=== PATIENT | female | born 1955 | race Caucasian/White ===

== ENCOUNTER → 2016-07-28 | Outpatient (CLI) | payer OTHER ==
--- NOTE | 2016-07-28 11:56 | XR ---
EXAMINATION TYPE: XR chest 2V DATE OF EXAM: 07/28/2016 11:22 AM COMPARISON: None HISTORY: 61 year-old female respiratory crackles TECHNIQUE: Frontal and lateral views FINDINGS: Heart is normal size. Aorta within normal limits. Mild interstitial prominence appears chronic. No co nsolidation or pleural effusion. IMPRESSION: Chronic changes without acute cardiopulmonary process.
== END | disposition home or self-care (01) ==
LOC: RADXRMAIN 11:01
PROVIDERS: ATTEND Family Medicine
DX: J98.4 Other disorders of lung (principal); R09.89 Other specified symptoms and signs involving the circulatory and respiratory systems
CPT/HCPCS: 71020

== ENCOUNTER 2018-04-29 14:26 | Inpatient (IN) | payer OTHER ==
[2018-04-29] MEDS ORDERED: HYDROcodone/APAP 5-325MG 1 EACH TAB PO STA (15:03)
--- NOTE | 2018-04-29 15:08 | ED ---
Fall HPI - General Chief Complaint: Fall Stated Complaint: Fell Time Seen by Provider: 04/29/18 14:47 Source: patient Mode of arrival: wheelchair - History of Present Illness Initial Comments: 8-year-old female presenting after mechanical fall down 3 cement steps. Patient states she lost her footing when she fell forward striking her forehead and twisting her right knee. States she's been unable to ambulate since secondary to the knee pain. Patient is on Plavix but denies any anticoagulants. Denies any headache or blurred vision. Patient states for the past one week she has been having disequilibrium and frequent falls. States she started unknown pain medication on April 05 for her fibromyalgia. - Related Data Home Medications Medication Instructions Recorded Confirmed Amitriptyline HCl 75 mg PO HS 11/01/15 04/29/18 Atorvastatin Calcium [Lipitor] 80 mg PO HS 11/01/15 04/29/18 Lisinopril [Prinivil] 20 mg PO BID 11/01/15 04/29/18 Metoprolol Tartrate [Lopressor] 50 mg PO BID 11/01/15 04/29/18 Vilazodone HCl [Viibryd] 40 mg PO DAILY 11/01/15 04/29/18 Albuterol Inhaler [Ventolin Hfa 1 - 2 puff INHALATION RT-Q6H PRN 04/29/18 Inhaler] Baclofen [Lioresal] 5 mg PO TID 04/29/18 04/29/18 Budesonide/Formoterol Fumarate 2 puff INHALATION RT-BID 04/29/18 04/29/18 [Symbicort 160-4.5 Mcg Inhaler] Cholecalciferol [Vitamin D3] 1,000 unit PO DAILY 04/29/18 04/29/18 Fluticasone Nasal [place] [Flonase 2 spr EA NOSTRIL DAILY 04/29/18 04/29/18 Nasal [place]] Gabapentin [Neurontin] 300 mg PO TID 04/29/18 04/29/18 Ibuprofen [Motrin] 800 mg PO TID 04/29/18 04/29/18 Nitroglycerin Sl Tabs [Nitrostat] 0.4 mg SUBLINGUAL Q5M PRN 04/29/18 04/29/18 amLODIPine [Norvasc] 10 mg PO DAILY 04/29/18 04/29/18 busPIRone HCL 15 mg PO BID 04/29/18 04/29/18 clonazePAM [KlonoPIN] 0.25 mg PO DAILY PRN 04/29/18 04/29/18 lamoTRIgine [LaMICtal] 200 mg PO DAILY 04/29/18 04/29/18 oxyCODONE-APAP 7.5-325MG [Percocet 1 tab PO QID 04/29/18 04/29/18 7.5-325 mg] Previous Rx's Medication Instructions Recorded Aspirin 81 mg PO DAILY #1 chewable 11/01/15 Allergies Allergy/AdvReac Type Severity Reaction Status Date / Time No Known Allergies Allergy Verified 04/29/18 14:49 Review of Systems ROS Statement: Those systems with pertinent positive or pertinent negative responses have been documented in the HPI. Review of Systems Constitutional: Denies fever, chills Eyes: Denies change in vision, Denies pain Ears, nose, mouth, throat: Denies headaches, Denies sore throat Cardiovascular: Denies chest pain. Denies palpitations Respiratory: Denies shortness of breath, Denies cough Gastrointestinal: Denies abdominal pain. Denies nausea, vomiting, diarrhea. Genitourinary: Denies hematuria, Denies infections Musculoskeletal: Positive pain Denies swelling Integumentary: Denies rash Neurological: Denies headache, focal weakness, focal numbness Psychiatric: Denies anxiety, Denies depression Hematologic/Lymphatic: Denies easy bleeding or bruising ROS Other: All systems not noted in ROS Statement are negative. Past Medical History Past Medical History: Chest Pain / Angina, Hyperlipidemia, Hypertension, Myocardial Infarction ([place]) Last Myocardial Infarction Date:: 2012 History of Any Multi-Drug Resistant Organisms: None Reported Past Surgical History: Section, Cholecystectomy, Heart Catheterization With Stent Additional Past Surgical History / Comment(s): CARDIAC STENT Past Anesthesia/Blood Transfusion Reactions: No Reported Reaction Past Psychological History: Anxiety, Depression Smoking Status: Current every day smoker Past Alcohol Use History: None Reported Past Drug Use History: None Reported General Exam - General Exam Comments Initial Comments: General: Awake, alert, No acute Distress HENT: Normocephalic. Contusion superior to the right eyebrow superficial abrasions. No hemotympanum bilaterally. No battles sign Eyes: PERRL. EOMI. No scleral icterus. No injected conjunctiva Neck: Full ROM Chest/Lungs: Clear to auscultation bilaterally. No wheezing, rhonchi, or rales Cardiac: Regular rate, rhythm. No murmurs or rubs Abdomen/GI: Soft, nontender, nondistended. No rebound, guarding, or rigidity. Musculoskeletal: No midline cervical, thoracic, or lumbar back tenderness. No pelvic instability. Right knee tenderness to palpation inferior to the patella at the medial and lateral aspect of the joint. Limited right knee ROM secondary to pain. Superficial abrasions to the right knee. Skin: Warm, dry, intact Neurologic: A/Ox3, no weakness, no sensory deficit, no abnormal gait, no coordination deficit Limitations: no limitations Course Vital Signs 04/29/18 04/29/18 14:30 18:12 Temperature 98.1 F 98.3 F Pulse Rate 83 84 Respiratory 20 18 Rate Blood Pressure 127/81 116/71 O2 Sat by Pulse 99 96 Oximetry Medical Decision Making - Medical Decision Making 8-year-old female presenting after mechanical fall. Initial exam the patient is awake, alert, no acute distress. VSS. Patient's laboratory imaging workup negative for acute process. The patient is unable to ambulate secondary to right knee pain. I will obtain a CT however at this time the patient requires admission. She has been unstable on her feet for the past couple of days and at this time will not be able to ambulate with a knee immobilizer and crutches. I spoke with Dr. Galvez who is agreeable to admission with an orthopedic consult. 1740 Patient found to have medial and lateral tibial plateau fractures with hemarthrosis on CT. I spoke with Dr. Comer regarding patient. Patient is already in a knee immobilizer. - Lab Data Result diagrams: 04/29/18 15:15 04/29/18 15:15 Lab Results 04/29/18 04/29/18 04/29/18 Range/Units 15:15 15:15 15:15 WBC 9.6 (3.8-10.6) k/uL RBC 4.46 (3.80-5.40) m/uL Hgb 13.4 (11.4-16.0) gm/dL Hct 39.3 (34.0-46.0) % MCV 88.0 (80.0-100.0) fL MCH 30.0 (25.0-35.0) pg MCHC 34.0 (31.0-37.0) g/dL RDW 13.9 (11.5-15.5) % Plt Count 168 (150-450) k/uL Neutrophils % 71 % Lymphocytes % 20 % Monocytes % 6 % Eosinophils % 1 % Basophils % 1 % Neutrophils # 6.8 (1.3-7.7) k/uL Lymphocytes # 1.9 (1.0-4.8) k/uL Monocytes # 0.5 (0-1.0) k/uL Eosinophils # 0.1 (0-0.7) k/uL Basophils # 0.1 (0-0.2) k/uL Sodium 136 L (137-145) mmol/L Potassium 4.1 (3.5-5.1) mmol/L Chloride 104 (98-107) mmol/L Carbon Dioxide 23 (22-30) mmol/L Anion Gap 9 mmol/L BUN 5 L (7-17) mg/dL Creatinine 0.53 (0.52-1.04) mg/dL Est GFR (CKD-EPI)AfAm >90 (>60 ml/min/1.73 sqM) Est GFR (CKD-EPI)NonAf >90 (>60 ml/min/1.73 sqM) Glucose 143 H (74-99) mg/dL Calcium 9.4 (8.4-10.2) mg/dL Magnesium 1.5 L (1.6-2.3) mg/dL Troponin I <0.012 (0.000-0.034) ng/mL Urine Color Urine Appearance (Clear) Urine pH (5.0-8.0) Ur Specific [place] (1.001-1.035) Urine Protein (Negative) Urine Glucose (UA) (Negative) Urine Ketones (Negative) Urine Blood (Negative) Urine Nitrite (Negative) Urine Bilirubin (Negative) Urine Urobilinogen (<2.0) mg/dL Ur Leukocyte Esterase (Negative) 04/29/18 Range/Units 15:50 WBC (3.8-10.6) k/uL RBC (3.80-5.40) m/uL Hgb (11.4-16.0) gm/dL Hct (34.0-46.0) % MCV (80.0-100.0) fL MCH (25.0-35.0) pg MCHC (31.0-37.0) g/dL RDW (11.5-15.5) % Plt Count (150-450) k/uL Neutrophils % % Lymphocytes % % Monocytes % % Eosinophils % % Basophils % % Neutrophils # (1.3-7.7) k/uL Lymphocytes # (1.0-4.8) k/uL Monocytes # (0-1.0) k/uL Eosinophils # (0-0.7) k/uL Basophils # (0-0.2) k/uL Sodium (137-145) mmol/L Potassium (3.5-5.1) mmol/L Chloride (98-107) mmol/L Carbon Dioxide (22-30) mmol/L Anion Gap mmol/L BUN (7-17) mg/dL Creatinine (0.52-1.04) mg/dL Est GFR (CKD-EPI)AfAm (>60 ml/min/1.73 sqM) Est GFR (CKD-EPI)NonAf (>60 ml/min/1.73 sqM) Glucose (74-99) mg/dL Calcium (8.4-10.2) mg/dL Magnesium (1.6-2.3) mg/dL Troponin I (0.000-0.034) ng/mL Urine Color Light Yellow Urine Appearance Clear (Clear) Urine pH 6.5 (5.0-8.0) Ur Specific [place] 1.003 (1.001-1.035) Urine Protein Negative (Negative) Urine Glucose (UA) Negative (Negative) Urine Ketones Negative (Negative) Urine Blood Negative (Negative) Urine Nitrite Negative (Negative) Urine Bilirubin Negative (Negative) Urine Urobilinogen <2.0 (<2.0) mg/dL Ur Leukocyte Esterase Negative (Negative) Disposition Clinical Impression: Tibial plateau fracture, right Disposition: ADMITTED IP TO THIS [facility] Condition: Good Decision Date: 04/29/18 Decision Time: 16:58
[2018-04-29 15:35] LABS: Basophils # (A) 0.1 k/uL (0-0.2); Basophils % (A) 1 %; Eosinophils # (A) 0.1 k/uL (0-0.7); Eosinophils % (A) 1 %; HCT 39.3 % (34.0-46.0); HGB 13.4 gm/dL (11.4-16.0); Lymphocytes # (A) 1.9 k/uL (1.0-4.8); Lymphocytes % (A) 20 %; Mean Platelet Volume 7.4; Monocytes # (A) 0.5 k/uL (0-1.0); Monocytes % (A) 6 %; Neutrophils # (A) 6.8 k/uL (1.3-7.7); Neutrophils % (A) 71 %; Platelet Count 168 k/uL (150-450); RBC 4.46 m/uL (3.80-5.40); RDW 13.9 % (11.5-15.5); WBC 9.6 k/uL (3.8-10.6)
[2018-04-29 15:51] LABS: Anion Gap 9 mmol/L; Blood Urea Nitrogen 5 mg/dL (7-17); Calcium 9.4 mg/dL (8.4-10.2); Carbon Dioxide 23 mmol/L (22-30); Chloride 104 mmol/L (98-107); Glucose 143 mg/dL (74-99); Magnesium 1.5 mg/dL (1.6-2.3); Potassium 4.1 mmol/L (3.5-5.1); Sodium 136 mmol/L (137-145)
--- NOTE | 2018-04-29 16:03 | CT ---
EXAMINATION TYPE: CT brain lloydine wo con DATE OF EXAM: 04/29/2018 COMPARISON: NONE HISTORY: fall CT DLP: 1121.1 mGycm. Automated Exposure Control for Dose Reduction was Utilized. TECHNIQUE: CT scan of the head and cervical spine are performed without contrast. FINDINGS: There is no acute intracranial hemorrhage, mass effect, or midline shift identified. The ventricles and sulci are within normal limits in size. The globes are intact and the visualized sin uses are clear. Cervical spine is visualized in its entirety from C1 through upper thoracic levels and demonstrates s atisfactory alignment without evidence of acute fracture or dislocation. Prevertebral soft tissue ap pears within normal limits. The C1-C2 articulation is unremarkable. IMPRESSION: 1. There is no acute fracture or dislocation evident in the cervical spine. 2. No acute intracranial hemorrhage, mass effect, or midline shift is seen.
--- NOTE | 2018-04-29 16:04 | XR ---
EXAMINATION TYPE: XR chest 2V DATE OF EXAM: 04/29/2018 COMPARISON: Chest radiograph 04/13/2018 HISTORY: Fall, pain TECHNIQUE: Frontal and lateral views of the chest are obtained. FINDINGS: There is no focal air space opacity, pleural effusion, or pneumothorax seen. The cardiac silhouette size is within normal limits. The osseous structures are intact. Air density projects mendenhall perior to the left hemidiaphragm likely representing a small hiatal hernia. IMPRESSION: No acute cardiopulmonary process.
--- NOTE | 2018-04-29 16:05 | XR ---
EXAMINATION TYPE: XR Hip RT and AP Pelvis DATE OF EXAM: 04/29/2018 COMPARISON: NONE HISTORY: Fall, pain TECHNIQUE: A single AP view of the pelvis is obtained. Two views of the right hip are obtained. FINDINGS: There is no acute fracture/dislocation evident in the pelvis. The hip and sacroiliac join ts appear symmetric and unremarkable. The overlying soft tissue appears unremarkable. Two views of right hip show no acute fracture or dislocation. No focal lytic or sclerotic lesion see n in the proximal right femur. The overlying soft tissue is unremarkable. IMPRESSION: There is no acute fracture or dislocation in the pelvis or right hip.
--- NOTE | 2018-04-29 16:06 | XR ---
EXAMINATION TYPE: XR knee complete RT DATE OF EXAM: 04/29/2018 CLINICAL HISTORY: Fall, knee pain TECHNIQUE: Three views of the right knee are obtained. COMPARISON: None. FINDINGS: There is no acute fracture/dislocation evident in right knee. Tricompartmental degenerati ve type changes. The overlying soft tissue appears unremarkable. IMPRESSION: There is no acute fracture or dislocation in the right knee.
[2018-04-29 16:11] LABS: Appearance,Urine Clear (Clear); Bilirubin,Urine Negative (Negative); Blood,Urine Negative (Negative); Color,Urine Light Yellow; Glucose,Urine (UA) Negative (Negative); Ketones,Urine Negative (Negative); Leukocyte Esterase,Urine Negative (Negative); Nitrite,Urine Negative (Negative); PH, Urine 6.5 (5.0-8.0); Protein,Urine Negative (Negative); Specific Gravity,Urine 1.003 (1.001-1.035); Urobilinogen,Urine <2.0 mg/dL (<2.0)
[2018-04-29] MEDS ORDERED: MAGNESIUM OXIDE 400 MG TAB PO STA (16:16)
--- NOTE | 2018-04-29 17:33 | CT ---
EXAMINATION TYPE: CT knee RT wo con DATE OF EXAM: 04/29/2018 COMPARISON: HISTORY: Right knee pain after fall. CT DLP: 108.9 mGycm Automated exposure control for dose reduction was used. CT of the right knee was obtained. Coronal an d sagittal reformatted images were provided in bone window. FINDINGS: Small joint effusion is present with lipohemarthrosis . Medial and lateral tibial plateau fractures are evident. Lateral tibial plateau fracture extends from the midportion of the tibia anteriorly with a few millimeters of depression. Fracture line also exte nds to involve the most anterior aspect of the lateral and posterior tibial spine. Medial tibial plat eau fracture extends in the cranial caudal dimension involving the posterior aspect of the tibia exte nding inferiorly. The fracture fragment is displaced slightly posteriorly and inferiorly. The patella is intact. The fibula is intact. IMPRESSION: 1. MEDIAL AND LATERAL TIBIAL PLATEAU FRACTURES. 2. LIPOHEMARTHROSIS. SUPPLEMENTAL COMMUNICATION-FINDINGS WERE DISCUSSED WITH DR. HERNANDEZ BY DR. BOYD ON 04/29/2018 AT 1730 HOURS
[2018-04-29] MEDS ORDERED: NALOXONE 0.4 MG/ML 1 ML VIAL IV PRN (17:43)
[2018-04-29] MEDS ORDERED: ONDANSETRON 4 MG/2 ML VIAL IVP PRN (17:43)
[2018-04-29] MEDS ORDERED: ALBUTEROL NEBULIZED 2.5 MG/3 ML INHALATION PRN (17:49)
[2018-04-29] MEDS ORDERED: clonazePAM 0.5 MG TAB PO PRN (17:49)
[2018-04-29] MEDS ORDERED: DIPH,PERTUS(ACELL)TETVAC-LF 0.5 ML VIAL IM ONE (17:58)
[2018-04-29] MEDS: MORPHINE SULFATE 4 MG/ML SYRINGE IV PRN ×2 (19:41→23:19)
[2018-04-29 20:00] VITALS: RESP 14; BMI 38.0
[2018-04-29] MEDS ORDERED: AMITRIPTYLINE HCL 25 MG TAB PO SCH (21:00)
[2018-04-29] MEDS ORDERED: ATORVASTATIN 80 MG TAB PO SCH (21:00)
[2018-04-29] MEDS: SYMBICORT 160-4.5 MCG INHALER INHALATION SCH (21:03)
[2018-04-29] MEDS: KETOROLAC 30 MG/ML 1 ML VIAL IVP PRN (21:16)
[2018-04-29] MEDS: busPIRone HCl 5 MG TAB PO SCH (21:29)
[2018-04-29] MEDS: LISINOPRIL 20 MG TAB PO SCH (21:29)
[2018-04-29] MEDS: BACLOFEN 10 MG TAB PO SCH (21:29)
[2018-04-29] MEDS: METOPROLOL TARTRATE 50 MG TAB PO SCH (21:29)
[2018-04-29] MEDS: GABAPENTIN 300 MG CAP PO SCH (21:30)
[2018-04-30] MEDS: HYDROcodone/APAP 5-325MG 1 EACH TAB PO PRN ×2 (01:04→13:50)
[2018-04-30 02:27] LABS: Glucose,Whole Blood 181 mg/dL (75-99)
[2018-04-30] MEDS: MORPHINE SULFATE 4 MG/ML SYRINGE IV PRN ×3 (04:12→14:37)
[2018-04-30 07:16] LABS: Basophils # (A) 0.1 k/uL (0-0.2); Basophils % (A) 0 %; Eosinophils # (A) 0.1 k/uL (0-0.7); Eosinophils % (A) 1 %; HCT 37.9 % (34.0-46.0); HGB 12.4 gm/dL (11.4-16.0); Lymphocytes % (A) 18 %; MCHC 32.6 g/dL (31.0-37.0); MCV 89.1 fL (80.0-100.0); Mean Platelet Volume 7.3; Monocytes # (A) 0.6 k/uL (0-1.0); Monocytes % (A) 6 %; Neutrophils # (A) 8.7 k/uL (1.3-7.7); Neutrophils % (A) 75 %; Platelet Count 175 k/uL (150-450); RBC 4.26 m/uL (3.80-5.40); RDW 13.8 % (11.5-15.5); WBC 11.6 k/uL (3.8-10.6)
[2018-04-30] MEDS: KETOROLAC 30 MG/ML 1 ML VIAL IVP PRN (07:30)
[2018-04-30 07:31] LABS: Anion Gap 9 mmol/L; Blood Urea Nitrogen 9 mg/dL (7-17); Calcium 9.6 mg/dL (8.4-10.2); Carbon Dioxide 29 mmol/L (22-30); Chloride 100 mmol/L (98-107); Glucose 136 mg/dL (74-99); Potassium 3.9 mmol/L (3.5-5.1); Sodium 138 mmol/L (137-145)
[2018-04-30] MEDS: SYMBICORT 160-4.5 MCG INHALER INHALATION SCH ×2 (08:26→08:29)
[2018-04-30] MEDS ORDERED: Vilazodone Hcl [Viibryd] 40 MG PO SCH (09:00)
[2018-04-30] MEDS ORDERED: CHOLECALCIFEROL 1,000 UNIT TAB PO SCH (09:00)
[2018-04-30] MEDS ORDERED: amLODIPine 10 MG TAB PO SCH (09:00)
[2018-04-30] MEDS ORDERED: lamoTRIgine 100 MG TAB PO SCH (09:00)
[2018-04-30] MEDS ORDERED: ASPIRIN 81 MG PO SCH (09:00)
[2018-04-30] MEDS ORDERED: FLUTICASONE 50MCG/SPRAY NASAL 16GM EA NOSTRIL SCH (09:00)
[2018-04-30] MEDS: INSULIN ASPART 100 UNIT/ML 1 ML 10 ML VIAL SQ SCH ×2 (10:00→13:02)
[2018-04-30 10:10] VITALS: BP 110/71; PULSE 88; TEMP 97.7
[2018-04-30] MEDS: GABAPENTIN 300 MG CAP PO SCH (10:14)
[2018-04-30] MEDS: BACLOFEN 10 MG TAB PO SCH (10:14)
[2018-04-30] MEDS: METOPROLOL TARTRATE 50 MG TAB PO SCH (10:15)
[2018-04-30] MEDS: LISINOPRIL 20 MG TAB PO SCH (10:15)
[2018-04-30] MEDS: busPIRone HCl 5 MG TAB PO SCH (10:15)
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
[2018-04-30 11:54] LABS: Glucose,Whole Blood 184 mg/dL (75-99)
[2018-04-30] MEDS: MAGNESIUM SULFATE-D5W PMX 1 GM in DEXTROSE/WATER 1 100ML.BAG IVPB SCH ×2 (13:02→14:09)
--- NOTE | 2018-04-30 13:06 | P.DS ---
Providers Date of admission: 04/30/18 10:54 Attending physician: Josias Galvez Consults: 04/29/18 17:46 Consult Physician Routine Consulting Provider: Shiraz Comer Consult Reason/Comments: tibial plateau fracture Do you want consulting provider notified?: Yes, Notify in am Primary care physician: [facility] [place] Course: Please refer to my HPI Patient Condition at Discharge: Good Plan - Discharge Summary Discharge Rx Participant: Yes New Discharge Prescriptions: Continue Amitriptyline HCl 75 mg PO HS Vilazodone HCl [Viibryd] 40 mg PO DAILY Atorvastatin Calcium [Lipitor] 80 mg PO HS Metoprolol Tartrate [Lopressor] 50 mg PO BID Aspirin 81 mg PO DAILY #1 chewable Cholecalciferol [Vitamin D3] 1,000 unit PO DAILY Budesonide/Formoterol Fumarate [Symbicort 160-4.5 Mcg Inhaler] 2 puff INHALATION RT-BID Albuterol Inhaler [Ventolin Hfa Inhaler] 1 - 2 puff INHALATION RT-Q6H PRN PRN Reason: Shortness Of Breath oxyCODONE-APAP 7.5-325MG [Percocet 7.5-325 mg] 1 tab PO QID amLODIPine [Norvasc] 10 mg PO DAILY Nitroglycerin Sl Tabs [Nitrostat] 0.4 mg SUBLINGUAL Q5M PRN PRN Reason: Chest Pain lamoTRIgine [LaMICtal] 200 mg PO DAILY Ibuprofen [Motrin] 800 mg PO TID Gabapentin [Neurontin] 300 mg PO TID clonazePAM [KlonoPIN] 0.25 mg PO DAILY PRN PRN Reason: Anxiety Fluticasone Nasal [place] [Flonase Nasal [place]] 2 spr EA NOSTRIL DAILY busPIRone HCL 15 mg PO BID Baclofen [Lioresal] 5 mg PO TID Changed Lisinopril [Prinivil] 20 mg PO DAILY #0 Discharge Medication List Amitriptyline HCl 75 mg PO HS 11/01/15 [History] Aspirin 81 mg PO DAILY #1 chewable 11/01/15 [Rx] Atorvastatin Calcium [Lipitor] 80 mg PO HS 11/01/15 [History] Metoprolol Tartrate [Lopressor] 50 mg PO BID 11/01/15 [History] Vilazodone HCl [Viibryd] 40 mg PO DAILY 11/01/15 [History] Albuterol Inhaler [Ventolin Hfa Inhaler] 1 - 2 puff INHALATION RT-Q6H PRN [History] Baclofen [Lioresal] 5 mg PO TID 04/29/18 [History] Budesonide/Formoterol Fumarate [Symbicort 160-4.5 Mcg Inhaler] 2 puff INHALATION RT-BID 04/29/18 [History] Cholecalciferol [Vitamin D3] 1,000 unit PO DAILY 04/29/18 [History] Fluticasone Nasal [place] [Flonase Nasal [place]] 2 spr EA NOSTRIL DAILY 04/29/18 [ History] Gabapentin [Neurontin] 300 mg PO TID 04/29/18 [History] Ibuprofen [Motrin] 800 mg PO TID 04/29/18 [History] Nitroglycerin Sl Tabs [Nitrostat] 0.4 mg SUBLINGUAL Q5M PRN 04/29/18 [History] amLODIPine [Norvasc] 10 mg PO DAILY 04/29/18 [History] busPIRone HCL 15 mg PO BID 04/29/18 [History] clonazePAM [KlonoPIN] 0.25 mg PO DAILY PRN 04/29/18 [History] lamoTRIgine [LaMICtal] 200 mg PO DAILY 04/29/18 [History] oxyCODONE-APAP 7.5-325MG [Percocet 7.5-325 mg] 1 tab PO QID 04/29/18 [History] Lisinopril [Prinivil] 20 mg PO DAILY #0 04/30/18 [Rx] Follow up Appointment(s)/Referral(s): Neil Moon DO [Primary Care Provider] - 3 Days Shiraz Comer MD [Medical Doctor] - 1 Week Patient Instructions/Handouts: Knee Pain (GEN) Discharge Disposition: HOME SELF-CARE
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
[2018-05-01 10:53] LABS: Hemoglobin A1C 7.5 % (4.0-6.0)
== END 2018-04-30 15:45 | disposition home or self-care (01) | DRG 563 ==
LOC: EC 14:26 → 4SSUR 17:44 → OBSVTOIN 04-30 10:54
PROVIDERS: ADMIT Hospitalist; ATTEND Hospitalist
DX: S82.141A Displaced bicondylar fracture of right tibia, initial encounter for closed fracture (principal); M25.061 Hemarthrosis, right knee; W10.8XXA Fall (on) (from) other stairs and steps, initial encounter; Y92.9 Unspecified place or not applicable; E78.5 Hyperlipidemia, unspecified; Z71.6 Tobacco abuse counseling; F17.210 Nicotine dependence, cigarettes, uncomplicated; F32.9 Major depressive disorder, single episode, unspecified; F41.9 Anxiety disorder, unspecified; I10 Essential (primary) hypertension; I25.10 Atherosclerotic heart disease of native coronary artery without angina pectoris; I25.2 Old myocardial infarction; R29.6 Repeated falls; R42 Dizziness and giddiness; Z79.02 Long term (current) use of antithrombotics/antiplatelets; Z79.51 Long term (current) use of inhaled steroids; Z79.82 Long term (current) use of aspirin; Z79.899 Other long term (current) drug therapy; Z95.5 Presence of coronary angioplasty implant and graft; Z79.891 Long term (current) use of opiate analgesic
CPT/HCPCS: 36415; 70450; 71046; 72125; 73502; 80048; 81003; 83036; 83735; 84484; 85025; 90715; 93005; 99285

== ENCOUNTER → 2020-04-16 | Outpatient (CLI) | payer OTHER | END | disposition home or self-care (01) | LOC: LABWHC1 14:01 | PROVIDERS: ATTEND Family Medicine | DX: E11.9 Type 2 diabetes mellitus without complications (principal) | CPT/HCPCS: 36415; 82009 ==